=== PATIENT | female | born 1960 | race Caucasian/White ===

== ENCOUNTER 2018-09-26 11:25 | Day surgery (SDC) | payer OTHER ==
[2018-09-26] MEDS ORDERED: PROPOFOL 20 ML (15:07)
== END 2018-09-26 16:46 | disposition home or self-care (01) ==
LOC: GIL 11:25
DX: K29.60 Other gastritis without bleeding (principal); E11.9 Type 2 diabetes mellitus without complications
CPT/HCPCS: 43239; 82962; 88305; 88312